=== PATIENT | female | born 1995 | race African-American/Black ===

== ENCOUNTER 2017-06-09 07:55 | Emergency (ER) | payer SELFPAY ==
[2017-06-09] MEDS ORDERED: Ibuprofen 800 MG TAB ONE (08:09)
[2017-06-09] MEDS ORDERED: Acetaminophen 500 MG TAB ONE (08:09)
== END 2017-06-09 08:15 | disposition home or self-care (01) ==
LOC: ERS 07:55
DX: J11.1 Influenza due to unidentified influenza virus with other respiratory manifestations (principal); F41.9 Anxiety disorder, unspecified; F32.9 Major depressive disorder, single episode, unspecified; F17.210 Nicotine dependence, cigarettes, uncomplicated
CPT/HCPCS: 99283

== ENCOUNTER 2018-03-21 21:18 | Emergency (ER) | payer SELFPAY ==
[2018-03-21] MEDS ORDERED: Ketorolac Tromethamine 30 MG/ML VIAL ONE (21:41)
== END 2018-03-21 22:15 | disposition home or self-care (01) ==
LOC: ERS 21:18
DX: K01.1 Impacted teeth (principal); F17.210 Nicotine dependence, cigarettes, uncomplicated
CPT/HCPCS: 96372; J1885

== ENCOUNTER 2018-04-17 06:22 | Emergency (ER) | payer SELFPAY ==
[2018-04-17] MEDS ORDERED: traMADol HCl 50 MG TAB ONE (06:42)
== END 2018-04-17 06:47 | disposition home or self-care (01) ==
LOC: ERS 06:22
DX: K04.7 Periapical abscess without sinus (principal); K02.9 Dental caries, unspecified; Z71.6 Tobacco abuse counseling; F41.9 Anxiety disorder, unspecified; F32.9 Major depressive disorder, single episode, unspecified; F17.210 Nicotine dependence, cigarettes, uncomplicated
CPT/HCPCS: 99406

== ENCOUNTER 2018-04-17 12:15 | Emergency (ER) | payer SELFPAY ==
[2018-04-17] MEDS ORDERED: Dexamethasone 4 mg/ml Vial ONE (13:15)
== END 2018-04-17 13:20 | disposition home or self-care (01) ==
LOC: ERS 12:15
DX: K02.9 Dental caries, unspecified (principal); R22.0 Localized swelling, mass and lump, head; F17.210 Nicotine dependence, cigarettes, uncomplicated; F41.9 Anxiety disorder, unspecified; F32.9 Major depressive disorder, single episode, unspecified; Z79.891 Long term (current) use of opiate analgesic; Z79.899 Other long term (current) drug therapy
CPT/HCPCS: 99283; J1100

== ENCOUNTER 2018-10-29 01:45 | Emergency (ER) | payer SELFPAY ==
[2018-10-29] MEDS ORDERED: Acetaminophen 500 MG TAB ONE (02:57)
== END 2018-10-29 03:04 | disposition home or self-care (01) ==
LOC: ERS 01:45
DX: S46.911A Strain of unspecified muscle, fascia and tendon at shoulder and upper arm level, right arm, initial encounter (principal); K02.9 Dental caries, unspecified; K01.1 Impacted teeth; Z71.6 Tobacco abuse counseling; F41.9 Anxiety disorder, unspecified; F32.9 Major depressive disorder, single episode, unspecified; F17.210 Nicotine dependence, cigarettes, uncomplicated; X50.9XXA Other and unspecified overexertion or strenuous movements or postures, initial encounter
CPT/HCPCS: 99406

== ENCOUNTER 2019-01-05 21:31 | Emergency (ER) | payer SELFPAY ==
[2019-01-05] MEDS ORDERED: Dexamethasone 4 mg/ml Vial ONE (22:20)
[2019-01-05] MEDS ORDERED: Ketorolac Tromethamine 30 MG/ML VIAL ONE (22:20)
== END 2019-01-05 23:12 | disposition home or self-care (01) ==
LOC: ERS 21:31
DX: S46.911A Strain of unspecified muscle, fascia and tendon at shoulder and upper arm level, right arm, initial encounter (principal); J02.9 Acute pharyngitis, unspecified; F41.9 Anxiety disorder, unspecified; F32.9 Major depressive disorder, single episode, unspecified; X58.XXXA Exposure to other specified factors, initial encounter
CPT/HCPCS: 87081; 87430; 96372; 99283; J1100; J1885

== ENCOUNTER 2019-04-19 20:58 | Emergency (ER) | payer SELFPAY ==
[2019-04-19] MEDS ORDERED: Dexamethasone 4 mg/ml Vial ONE (21:38)
== END 2019-04-19 21:47 | disposition home or self-care (01) ==
LOC: ERS 20:58
DX: K03.81 Cracked tooth (principal); F41.9 Anxiety disorder, unspecified; F32.9 Major depressive disorder, single episode, unspecified; J45.909 Unspecified asthma, uncomplicated; F17.210 Nicotine dependence, cigarettes, uncomplicated; Z79.899 Other long term (current) drug therapy
CPT/HCPCS: 99282; J1100

== ENCOUNTER 2019-06-18 18:17 | Emergency (ER) | payer SELFPAY ==
[2019-06-18 18:59] LABS: #Basophils 0.1 thou/uL (0.0-0.2); #Lymphocytes 1.1 thou/uL (1.20-3.40); #Monocytes 0.2 thou/uL (0.11-0.59); #Neutrophils 5.4 thou/uL (1.40-6.50); %Basophils 0.8 % (0.0-1.0); %Eosinophils 0.2 % (0.0-10.0); %Lymphocytes 15.9 % (21.0-51.0); %Monocytes 3.4 % (0.0-10.0); %Neutrophils 79.7 % (42.0-75.0); Hemoglobin 13.5 g/dL (12.0-16.0); Mean Corpuscular HGB CONC 33.2 g/dL (32.0-36.0); Mean Corpuscular Hemoglobin 28.6 pg (27.0-31.0); Mean Corpuscular Volume 86.1 fL (78.0-98.0); Platelet Count 263 thou/uL (130-400); RBC Distribution Width 12.2 % (11.5-14.5); Red Blood Cell (RBC) Count 4.73 mill/uL (4.20-5.40); White Blood Cell (WBC) Count 6.7 thou/uL (4.8-10.8)
[2019-06-18] MEDS ORDERED: Ondansetron PF 4 MG/2 ML Vial ONE (19:05)
[2019-06-18 19:21] LABS: ALT (SGPT) 16 U/L (8-55); AST (SGOT) 19 U/L (5-34); Albumin 4.3 g/dL (3.5-5.0); Alkaline Phosphatase 56 U/L (40-110); Anion Gap 12 mmol/L (10-20); BUN (Urea Nitrogen) 9 mg/dL (7.0-18.7); Bilirubin, Total 0.4 mg/dL (0.2-1.2); Calc. Creatinine Clearance 0 mL/min (70-130); Calcium 9.3 mg/dL (7.8-10.44); Carbon Dioxide 26 mmol/L (22-29); Chloride 105 mmol/L (98-107); Estimated GFR-MDRD Greater than 90; Globulin 2.5 g/dL (2.4-3.5); Glucose 104 mg/dL (70-105); Potassium 3.7 mmol/L (3.5-5.1); Protein, Total 6.8 g/dL (6.0-8.3); Sodium 139 mmol/L (136-145)
[2019-06-18 19:28] LABS: Bacteria/HPF None Seen HPF (None Seen); Bilirubin Negative (Negative); Blood, Urine Negative (Negative); Clarity Clear (Clear); Glucose, Urine (Dipstick) Normal (Negative); Leukocyte Negative Leu/uL (Negative); Nitrite Negative (Negative); Protein, Urine (Dipstick) 70 mg/dL (Neg-Trace); RBC/HPF 0-3 HPF (0-3); Urobilinogen Normal mg/dL (Less than 2)
[2019-06-18 19:29] LABS: Pregnancy Test - Urine (BHCG) Negative (Negative); Pregu Control Background? CLEAR/WHITE (CLR/WHITE); Pregu Control Bar Appear? YES (CONTROL BAR); Specific Gravity 1.027 (1.002-1.036)
== END 2019-06-18 20:45 | disposition home or self-care (01) ==
LOC: ERS 18:17
DX: R11.2 Nausea with vomiting, unspecified (principal); R19.7 Diarrhea, unspecified; F17.210 Nicotine dependence, cigarettes, uncomplicated
CPT/HCPCS: 36415; 80053; 81003; 81015; 81025; 85025; 87804; 96361; 96372; 96374; J0500; J2405

== ENCOUNTER 2020-03-26 09:34 | Emergency (ER) | payer SELFPAY ==
[2020-03-26] MEDS ORDERED: Acetaminophen 500 MG TAB ONE (10:30)
[2020-03-26] MEDS ORDERED: Ketorolac Tromethamine 30 MG/ML VIAL ONE (10:30)
--- NOTE | 2020-03-26 11:51 | RAD ---
XR Shoulder Rt 3 View STANDARD HISTORY: Right shoulder pain FINDINGS: No fracture or dislocation is identified.
--- NOTE | 2020-03-26 11:51 | RAD ---
XR Chest 1 View Portable HISTORY: Chest pain COMPARISON: 01/29/2013 FINDINGS: The heart size is normal. The lungs are well expanded without focal areas of consolidation, pneumothorax or pleural effusions. IMPRESSION: No radiographic evidence of acute cardiopulmonary process.
== END 2020-03-26 12:25 | disposition home or self-care (01) ==
LOC: ERS 09:34
DX: M25.511 Pain in right shoulder (principal); J45.909 Unspecified asthma, uncomplicated; F41.9 Anxiety disorder, unspecified; F32.9 Major depressive disorder, single episode, unspecified; F17.210 Nicotine dependence, cigarettes, uncomplicated; Z79.899 Other long term (current) drug therapy
CPT/HCPCS: 71045; 96372; J1885

== ENCOUNTER 2020-06-16 05:42 | Emergency (ER) | payer SELFPAY | END 2020-06-16 06:15 | disposition home or self-care (01) | LOC: ERS 05:42 | DX: G89.29 Other chronic pain (principal); M25.511 Pain in right shoulder; J45.909 Unspecified asthma, uncomplicated; F17.210 Nicotine dependence, cigarettes, uncomplicated; Z79.899 Other long term (current) drug therapy | CPT/HCPCS: 99281 ==

== ENCOUNTER 2020-08-10 13:41 | Emergency (ER) | payer SELFPAY ==
[2020-08-10] MEDS ORDERED: Triple Antibiotic Oint 1 GM Packet ONE ×2 (14:10→14:13)
[2020-08-10] MEDS ORDERED: Boostrix 0.5 ML (Tdap) VIAL ONE (14:13)
[2020-08-10] MEDS ORDERED: Rabies Vaccine Human 2.5 UNITS VIAL IM ONE (14:30)
== END 2020-08-10 15:50 | disposition home or self-care (01) ==
LOC: ERS 13:41
DX: S81.852A Open bite, left lower leg, initial encounter (principal); S80.212A Abrasion, left knee, initial encounter; S71.151A Open bite, right thigh, initial encounter; W54.0XXA Bitten by dog, initial encounter; Z23 Encounter for immunization; J45.909 Unspecified asthma, uncomplicated; F17.210 Nicotine dependence, cigarettes, uncomplicated; Z79.899 Other long term (current) drug therapy
CPT/HCPCS: 90376; 90471; 90472; 90675; 90715; 96372

== ENCOUNTER → 2020-08-13 | Day surgery (SDC) | payer SELFPAY ==
[~2020-08-13] MED LIST: Rabies Vaccine Human 2.5 UNITS VIAL IM ONE
== END ==
LOC: ER/OP 13:55
DX: Z23 Encounter for immunization (principal)
CPT/HCPCS: 90471; 90675

== ENCOUNTER 2020-10-11 19:39 | Emergency (ER) | payer OTHER, SELFPAY ==
[2020-10-11] MEDS ORDERED: Acetaminophen 500 MG TAB ONE (20:02)
== END 2020-10-11 21:08 | disposition home or self-care (01) ==
LOC: ERS 19:39
DX: S80.11XA Contusion of right lower leg, initial encounter (principal); V03.90XA Pedestrian on foot injured in collision with car, pick-up truck or van, unspecified whether traffic or nontraffic accident, initial encounter; Z79.899 Other long term (current) drug therapy; J45.909 Unspecified asthma, uncomplicated; F17.210 Nicotine dependence, cigarettes, uncomplicated

== ENCOUNTER 2020-11-12 07:29 | Emergency (ER) | payer SELFPAY | END 2020-11-12 09:09 | disposition home or self-care (01) | LOC: ERS 07:29 | DX: M54.5 Low back pain (principal); J45.909 Unspecified asthma, uncomplicated; F17.210 Nicotine dependence, cigarettes, uncomplicated; Z79.899 Other long term (current) drug therapy | CPT/HCPCS: 99281 ==

== ENCOUNTER 2021-02-05 10:42 | Emergency (ER) | payer MEDICAID, SELFPAY ==
[2021-02-05] MEDS ORDERED: Acetaminophen 500 MG TAB ONE (12:26)
[2021-02-05 13:25] LABS: Bilirubin Negative (Negative); Blood, Urine Negative (Negative); Clarity Turbid (Clear); Glucose, Urine (Dipstick) Normal (Negative); Ketone, Urine Negative (Negative); Leukocyte Negative Leu/uL (Negative); Nitrite Negative (Negative); Protein, Urine (Dipstick) 20 mg/dL (Neg-Trace); Specific Gravity, Urine 1.026 (1.002-1.036)
[2021-02-05 13:27] LABS: Pregnancy Test - Urine (BHCG) Negative (Negative); Pregu Control Background? CLEAR/WHITE (CLR/WHITE); Pregu Control Bar Appear? YES (CONTROL BAR); Specific Gravity 1.026 (1.002-1.036)
[2021-02-06 00:11] LABS: SARS-CoV-2 PCR by NAA Not Detected (NotDetected)
== END 2021-02-05 14:27 | disposition home or self-care (01) ==
LOC: ERS 10:42
DX: B34.9 Viral infection, unspecified (principal); Z20.822 Contact with and (suspected) exposure to COVID-19; J45.909 Unspecified asthma, uncomplicated; F17.210 Nicotine dependence, cigarettes, uncomplicated; Z79.899 Other long term (current) drug therapy
CPT/HCPCS: 71045; 81003; 81025; 93005; U0003; U0005

== ENCOUNTER 2021-05-07 17:03 | Emergency (ER) | payer SELFPAY ==
[2021-05-07 17:59] LABS: #Basophils 0.1 thou/uL (0.0-0.2); #Eosinphils 0.8 thou/uL (0.0-0.7); #Lymphocytes 2.7 thou/uL (1.20-3.40); #Monocytes 0.6 thou/uL (0.11-0.59); #Neutrophils 5.4 thou/uL (1.40-6.50); %Basophils 0.9 % (0.0-1.0); %Eosinophils 8.8 % (0.0-10.0); %Lymphocytes 28.3 % (21.0-51.0); %Neutrophils 56.1 % (42.0-75.0); Hemoglobin 12.6 g/dL (12.0-16.0); Mean Corpuscular Hemoglobin 29.5 pg (27.0-31.0); Mean Corpuscular Volume 89.3 fL (78.0-98.0); Mean Platelet Volume 6.7 fL (7.4-10.4); Platelet Count 244 thou/uL (130-400); RBC Distribution Width 13.3 % (11.5-14.5); Red Blood Cell (RBC) Count 4.28 mill/uL (4.20-5.40); White Blood Cell (WBC) Count 9.7 thou/uL (4.8-10.8)
[2021-05-07 18:23] LABS: ALT (SGPT) 25 U/L (8-55); AST (SGOT) 17 U/L (5-34); Albumin 3.6 g/dL (3.5-5.0); Alkaline Phosphatase 61 U/L (40-110); Anion Gap 10 mmol/L (10-20); BUN (Urea Nitrogen) 14 mg/dL (7.0-18.7); Bilirubin, Total 0.5 mg/dL (0.2-1.2); CRP (Inflammatory) Less than 0.50 mg/dL (= or < 0.5); Calc. Creatinine Clearance 0 mL/min (70-130); Carbon Dioxide 26 mmol/L (22-29); Chloride 106 mmol/L (98-107); Globulin 2.6 g/dL (2.4-3.5); Glucose 92 mg/dL (70-105); Potassium 3.9 mmol/L (3.5-5.1); Protein, Total 6.2 g/dL (6.0-8.3); Sodium 138 mmol/L (136-145)
[2021-05-07] MEDS ORDERED: Ondansetron ODT 4 MG TAB ONE (18:29)
[2021-05-07 18:33] LABS: BHCG - Serum Negative (NEGATIVE); Pregs Control Background? CLEAR/WHITE (CLR/WHITE); Pregs Control Bar Appear? YES (CONTROL BAR)
[2021-05-07 22:08] LABS: SARS-CoV-2 NAA Rapid Test Not Detected (NotDetected)
== END 2021-05-07 19:45 | disposition home or self-care (01) ==
LOC: ERS 17:03
DX: R19.7 Diarrhea, unspecified (principal); R11.0 Nausea; R10.814 Left lower quadrant abdominal tenderness; R10.813 Right lower quadrant abdominal tenderness; R50.9 Fever, unspecified; J02.9 Acute pharyngitis, unspecified; R04.0 Epistaxis; F17.210 Nicotine dependence, cigarettes, uncomplicated; J45.909 Unspecified asthma, uncomplicated; Z20.822 Contact with and (suspected) exposure to COVID-19; Z79.899 Other long term (current) drug therapy
CPT/HCPCS: 0240U; 36415; 80053; 83690; 84703; 85025; 86140; 99284; Q0162